=== PATIENT | female | born 1975 | race Caucasian/White ===

== ENCOUNTER 2019-10-25 20:26 | Emergency (ER) | payer MEDICAID, OTHER ==
[2019-10-25 20:35] VITALS: BP 130/79
--- NOTE | 2019-10-25 20:55 | NUR ---
REPORT FROM CUATE ACEVEDO
== END 2019-10-25 22:22 | disposition home or self-care (01) ==
LOC: ED 22:04
DX: S16.1XXA Strain of muscle, fascia and tendon at neck level, initial encounter (principal); S39.012A Strain of muscle, fascia and tendon of lower back, initial encounter; S80.01XA Contusion of right knee, initial encounter; Z87.891 Personal history of nicotine dependence; W01.0XXA Fall on same level from slipping, tripping and stumbling without subsequent striking against object, initial encounter; Y93.89 Activity, other specified; Y92.410 Unspecified street and highway as the place of occurrence of the external cause; Y99.8 Other external cause status
CPT/HCPCS: 72050; 99284

== ENCOUNTER 2021-02-21 19:53 | Emergency (ER) | payer MEDICAID ==
[~2021-02-21] VITALS: Ht 167.6 cm; Wt 87.4 kg
[2021-02-21 19:59] VITALS: BP 140/78
== END 2021-02-21 21:29 | disposition home or self-care (01) ==
LOC: ED 20:00
DX: Z00.00 Encounter for general adult medical examination without abnormal findings (principal); F12.129 Cannabis abuse with intoxication, unspecified; Z88.0 Allergy status to penicillin
CPT/HCPCS: 99281